=== PATIENT | male | born 1970 | race African-American/Black ===

== ENCOUNTER 2020-01-27 15:16 | Inpatient (IN) | payer OTHER ==
[2020-01-27 17:50] VITALS: BMI 28.7
--- NOTE | 2020-01-27 18:06 | HP ---
CIWA Score Nausea/Vomitin-No Nausea/No Vomiting Muscle Tremors: None Anxiety: 4-Mod. Anxious/Guarded Agitation: 4-Moderately Restless Paroxysmal Sweats: 4-Forehead w/Sweat Beads Orientation: 0-Oriented Tacttile Disturbances: 0-None Auditory Disturbances: 0-None Visual Disturbances: 0-None Headache: 2-Mild CIWA-Ar Total Score: 14 - Admission Criteria OASAS Guidelines: Admission for Medically Managed Detox: Requires at least one of the followin. CIWA greater than 12 2. Seizures within the past 24 hours 3. Delirium tremens within the past 24 hours 4. Hallucinations within the past 24 hours 5. Acute intervention needed for co occurring medical disorder 6. Acute intervention needed for co occurring psychiatric disorder 7. Severe withdrawal that cannot be handled at a lower level of care (continued vomiting, continued diarrhea, abnormal vital signs) requiring intravenous medication and/or fluids 8. Patient presents the following: CIWA greater than 12 Admission Criteria Met: Admission criteria met Admission ROS [facility] Chief Complaint: C/O WORSENING WITHDRAWAL SX'S Allergies/Adverse Reactions: Allergies Allergy/AdvReac Type Severity Reaction Status Date / Time No Known Allergies Allergy Verified 01/27/20 18:00 History of Present Illness: HERE FOR ALCOHOL DETOX. TIS IS HIS FIRST ADMISSION. SELF REFERRED. PRESENTS W/ CO/ OF WITHDRAWAL SX'S. DRINKS ALCOHOL DAILY. LAST DRINK A FEW HOURS AGO. HE ALSO REPORTS COCA AND CANNABIS ABUSE. DENIES IVDU, BLACKOUTS, SEIZURE DO, EYE ACADEMY DIRECTOR. + VISUAL HALLUCINATIONS WITH INTOXICATION. PRESENTLY DENIES. DENIES ANY SIGNIFICANT PERIOD OF CLEAN TIME IN THE PAST 12 MONTHS. HE IS HOMELESS, UNEMPL OYED, DENIES LEGALS Exam Limitations: No Limitations - Ebola screening Have you traveled outside of the country in the last 21 days: No Have you had contact with anyone from an Ebola affected area: No Have you been sick,other than usual withdrawal symptoms: No Do you have a fever: No - Review of Systems Constitutional: Night Sweats, Changes in sleep EENT: reports: Dental Problems (MISSING TEETH) Respiratory: reports: No Symptoms reported Cardiac: reports: No Symptoms Reported GI: reports: No Symptoms Reported : reports: No Symptoms Reported Musculoskeletal: reports: Back Pain (CHRONIC), Neck Pain (CHRONIC) Integumentary: reports: Dryness Neuro: reports: Headache Endocrine: reports: No Symptoms Reported Hematology: reports: No Symptoms Reported Psychiatric: reports: Orientated x3, Anxious, Depressed (DENIES SI/HI) Other Systems: Reviewed and Negative Patient History - Patient Medical History Hx Anemia: No Hx Asthma: No Hx Chronic Obstructive Pulmonary Disease (COPD): No Hx Cancer: No Hx Cardiac Disorders: No Hx Congestive Heart Failure: No Hx Hypertension: No Hx Hypercholesterolemia: No Hx Pacemaker: No HX Cerebrovascular Accident: No Hx Seizures: No Hx Dementia: No Hx Diabetes: No Hx Gastrointestinal Disorders: No Hx Liver Disease: No Hx Genitourinary Disorders: No Hx Sexually Transmitted Disorders: No Hx Renal Disease (ESRD): No Hx Thyroid Disease: No Hx Human Immunodeficiency Virus (HIV): No Hx Hepatitis C: No Hx Depression: No Hx Suicide Attempt: No Hx Bipolar Disorder: No Hx Schizophrenia: No Other Medical History: DENIES - Patient Surgical History Past Surgical History: No - PPD History Previous Implant?: Yes Documented Results: Negative w/o proof Implanted On Prior [facility] Admission?: No PPD to be Administered?: Yes - Smoking Cessation Smoking history: Current every day smoker Have you smoked in the past 12 months: Yes Aproximately how many cigarettes per day: 20 Hx Chewing Tobacco Use: No Initiated information on smoking cessation: Yes 'Breaking Loose' booklet given: 01/27/20 - Substance & Tx. History Hx Alcohol Use: Yes Substance Use Type: None, Alcohol, Cocaine, Marijuana Hx Substance Use Treatment: No - Substances abused Cocaine Other (specify): crack Substance route: Smoking Frequency: Daily Amount used: 200 dollars Age of first use: 42 Date of last use: 01/27/20 Marijuana/Hashish Substance route: Smoking Frequency: 3-6 times per week Amount used: 20 dollars Age of first use: 14 Date of last use: 01/27/20 Alcohol Substance route: Oral Frequency: Daily Amount used: 1 liter henessy/ 2 of 40 oounces. Age of first use: 16 Date of last use: 01/27/20 Admission Physical Exam BHS - Vital Signs Vital Signs: Vital Signs - 24 hr 01/27/20 17:41 Temperature 97.8 F Pulse Rate 84 Respiratory 18 Rate Blood Pressure 127/74 - Physical General Appearance: Yes: Disheveled (UNKEPT, MALODUROUS), Mild Distress, Tremo rashard (FELT), Anxious HEENTM: Yes: EOMI, Normocephalic, Normal Voice, EAN, Pharynx Normal, Other (MISSING TEETH) Respiratory: Yes: Chest Non-Tender, Lungs Clear, Normal Breath Sounds, No Respiratory Distress, No Accessory Muscle Use Neck: Yes: No masses,lesions,Nodules, Supple, Trachea in good position Breast: Yes: Breasts Symetrical Cardiology: Yes: Regular Rhythm, Regular Rate, S1, S2 Abdominal: Yes: Normal Bowel Sounds, Non Tender, Soft Genitourinary: Yes: Within Normal Limits Back: Yes: Normal Inspection Musculoskeletal: Yes: full range of Motion, Gait Steady Extremities: Yes: Normal Capillary Refill, Normal Range of Motion, Non-Tender, Tremors Neurological: Yes: Fully Oriented, Alert, Motor Strength 5/5, Depressed Affect Integumentary: Yes: Dry (FLAKY SKIN COOL SKIN. PILORECTION NOTED), Rash (RASH NOTED TO RIGHT COLLAR BONE AND LEFT GROIN AREA, PRUTITIC WITH ERYTHEMATOUS BASE), Other (SKIN TAG TO LEFT FLANK AREA) Lymphatic: Yes: Within Normal Limits - Diagnostic (1) Alcohol dependence with withdrawal, uncomplicated Current Visit: Yes Status: Acute (2) Cocaine dependence, uncomplicated Current Visit: Yes Status: Acute (3) Nicotine dependence Current Visit: Yes Status: Chronic Qualifiers: Nicotine product type: cigarettes Substance use status: uncomplicated Qualified Code(s): F17.210 - Nicotine dependence, cigarettes, uncomplicated (4) Depressed affect Current Visit: Yes Status: Acute (5) Substance induced mood disorder Current Visit: Yes Status: Acute (6) Homeless Current Visit: Yes Status: Acute (7) At risk for dehydration due to poor fluid intake Current Visit: Yes Status: Acute (8) Skin turgor poor Current Visit: Yes Status: Acute (9) Tinea corporis Current Visit: Yes Status: Acute (10) Skin tag Current Visit: Yes Status: Chronic Cleared for Admission S - Detox or Rehab S Level of Care: Medically Managed Detox Regimen/Protocol: Librium Claeared for Rehab Admission: No Breathalyzer - Breathalyzer Breathalyzer: 0 Urine Drug Screen - Test Device Lot number: [id number] Expiration date: 10/23/21 - Control Is test valid?: Yes - Results Drug screen NEGATIVE: No Urine drug screen results: THC-Marijuana, MK-Cocaine Inpatient Rehab Admission - Rehab Decision to Admit Inpatient rehab admission?: No
[2020-01-27] MEDS ORDERED: NICOTINE POLACRILEX 2 MG GUM BUC PRN (18:11)
[2020-01-27] MEDS ORDERED: DICYCLOMINE HCL 10 MG CAPSULE PO PRN (18:11)
[2020-01-27] MEDS ORDERED: MAG HYDROX/AL HYDROX/SIMETH 30 ML UNIT-DOSE CUP PO PRN (18:11)
[2020-01-27] MEDS ORDERED: MAGNESIUM HYDROX 2400MG/30ML ORAL SUSPENSION 30 ML CUP PO PRN (18:11)
[2020-01-27] MEDS ORDERED: MENTHOL/PHENOL 1 EACH UD MM PRN (18:11)
[2020-01-27] MEDS ORDERED: IBUPROFEN 400 MG TABLET (FP) PO PRN (18:11)
[2020-01-27] MEDS ORDERED: BISMUTH SUBSALICYLATE 524 MG/30 ML UD PO PRN (18:11)
[2020-01-27] MEDS ORDERED: chlordiazePOXIDE HCL 25 MG CAPSULE PO PRN (18:11)
[2020-01-27] MEDS ORDERED: MAGNESIUM CITRATE 300 ML BOTTLE PO PRN (18:11)
[2020-01-27] MEDS ORDERED: P-EPHED 60MG/TRIPROLIDI 2.5MG TABLET PO PRN (18:11)
[2020-01-27] MEDS ORDERED: guaiFENesin 200 MG/10 ML 10 ML UNIT-DOSE CUPS PO PRN (18:11)
[2020-01-27] MEDS ORDERED: METHOCARBAMOL 500 MG TABLET PO PRN (18:11)
[2020-01-27] MEDS ORDERED: ACETAMINOPHEN 325 MG TABLET (FP) PO PRN ×2 (18:11)
[2020-01-27] MEDS ORDERED: MELATONIN 5 MG TABLETS PO PRN (18:50)
[2020-01-27] MEDS ORDERED: ONDANSETRON *ODT* 4 MG TABLET SL ONE (19:00)
[2020-01-27] MEDS ORDERED: MELATONIN 5 MG TABLETS PO SCH (22:00)
[2020-01-27] MEDS: THIAMINE HCL 100 MG TABLET (FP) PO SCH (22:43)
[2020-01-27] MEDS: chlordiazePOXIDE HCL 25 MG CAPSULE PO SCH (22:43)
[2020-01-27] MEDS: NYSTATIN 100,000 UNIT/GM TOPICAL CREAM 15 GM TUBE TP SCH (22:44)
[2020-01-28] MEDS: chlordiazePOXIDE HCL 25 MG CAPSULE PO SCH ×4 (06:00→22:47)
[2020-01-28] MEDS: PRENATAL VITAMINS W/ FOLIC ACID TABLET (FP) PO SCH (10:23)
[2020-01-28] MEDS: NICOTINE 14 MG/24 HOURS TOPICAL PATCH TD SCH (10:23)
[2020-01-28] MEDS: NYSTATIN 100,000 UNIT/GM TOPICAL CREAM 15 GM TUBE TP SCH ×2 (10:23→22:46)
[2020-01-28 10:34] LABS: HEMATOCRIT 38.1 % (35.4-49); HEMOGLOBIN 12.8 GM/dL (11.7-16.9); MCH 31.4 pg (25.7-33.7); MCHC 33.6 g/dl (32.0-35.9); MEAN CELL VOLUME 93.4 fl (80-96); MEAN PLT VOLUME 9.1 fl (7.5-11.1); PLATELET COUNT 210 K/MM3 (134-434); RBC 4.08 M/mm3 (4.00-5.60); RDW 15.8 % (11.9-15.9); WHITE BLOOD COUNT 5.2 K/mm3 (4.0-10.0)
[2020-01-28 10:50] LABS: ALBUMIN 3.1 g/dl (3.4-5.0); BILIRUBIN,TOTAL 0.2 mg/dL (0.2-1); CALCIUM 8.6 mg/dL (8.5-10.1); CREATININE 1.1 mg/dL (0.55-1.3); POTASSIUM 3.9 mmol/L (3.5-5.1); TOT PROT 5.9 g/dl (6.4-8.2)
--- NOTE | 2020-01-28 10:57 | EKG ---
Test Reason : Blood Pressure : / mmHG Vent. Rate : 078 BPM Atrial Rate : 078 BPM P-R Int : 158 ms QRS Dur : 094 ms QT Int : 358 ms P-R-T Axes : 053 061 031 degrees QTc Int : 408 ms NORMAL SINUS RHYTHM MINIMAL VOLTAGE CRITERIA FOR LVH, MAY BE NORMAL VARIANT NO PREVIOUS ECGS AVAILABLE Confirmed by VIVIEN DEMPSEY MD ([id number]) on 01/28/2020 10:57:09 AM Referred By: GREGORY Confirmed By:VIVIEN DEMPSEY MD
--- NOTE | 2020-01-28 12:06 | CONSULT ---
[facility] Psychiatric Consult - Data Date of interview: 01/28/20 Admission source: [facility] Identifying data: Revisit to [facility] and first admission to [address] [place] [address] for this 49 y/o AA male self-referred for detoxification treatment. RACHEL issues : alcohol, crack/cocaine, cannabis, nicotine. Patient is single, a father of four, now homeless, unemployed and deprived of any source of income. Substance Abuse History: Discussed with the patient. RACHEL profile as follows : Smoking history: Current every day smoker. Have you smoked in the past 12 months: Yes. Aproximately how many cigarettes per day: 20. Hx Chewing Tobacco Use: No. Initiated information on smoking cessation: Yes. 'Breaking Loose' booklet given: 01/27/20. - Substance & Tx. History. Hx Alcohol Use: Yes. Substance Use Type: None, Alcohol, Cocaine, Marijuana. Hx Substance Use Treatment: No. - Substances abused. Cocaine. Other (specify): crack. Substance route: Smoking. Frequency: Daily. Amount used: 200 dollars. Age of first use: 42. Date of last use: 01/27/20. Marijuana/Hashish. Substance route: Smoking. Frequency: 3-6 times per week. Amount used: 20 dollars. Age of first use: 14. Date of last use: 01/27/20. Alcohol. Substance route: Oral. Frequency: Daily. Amount used: 1 liter henessy/ 2 of 40 oounces. Age of first use: 16. Date of last use: 01/27/20 Medical History: Patient endorses good general health. Noted report of tinea corporis (H+P on this admission). Psychiatric History: Patient denies history of psychiatric hospitalizations (only extended observation stays with release next day at [facility], [facility] and [facility]). " I don't have a mental illness. Using drugs and drinking alcohol are my only problems." Denies having ever received a formal psychiatric diagnosis other than a RACHEL-related syndrome. Mr Maldonado denies history of suicide attempts. Physical/Sexual Abuse/Trauma History: Stressors : homelessness, unemployment, lack of vocational skills, conflictual rapport with biological mother, discord with common-law spouse and addictions. Additional Comment: Urine drug screen results: THC-Marijuana, MK-Cocaine. Noted. Mental Status Exam - Mental Status Exam Alert and Oriented to: Time, Place, Person Cognitive Function: Good Patient Appearance: Unkempt, Disheveled Mood: Nervous Affect: Inappropriate, Labile Patient Behavior: Talkative, Cooperative (overfriendly) Speech Pattern: Inappropriate (frequent use of expletives, profanities), Excessive Voice Loudness: Normal Thought Process: Circumstantial (at times), Goal Oriented Thought Disorder: Bizarre (appears to be religiously preoccupied) Hallucinations: Denies Suicidal Ideation: Denies Homicidal Ideation: Denies Insight/Judgement: Poor Sleep: Well Appetite: Good Gait/Station: Normal Psychiatric Findings - Problem List ([place] 1, 2,3) (1) Alcohol dependence with withdrawal, uncomplicated Current Visit: Yes Status: Acute (2) Cocaine dependence, uncomplicated Current Visit: Yes Status: Chronic (3) Cannabis dependence Current Visit: Yes Status: Chronic (4) Nicotine dependence Current Visit: Yes Status: Chronic Qualifiers: Nicotine product type: cigarettes Substance use status: uncomplicated Qualified Code(s): F17.210 - Nicotine dependence, cigarettes, uncomplicated (5) Substance induced mood disorder Current Visit: Yes Status: Chronic - Initial Treatment Plan Initial Treatment Plan: Psychoeducation. Sleep hygiene. Detoxification in progress. Support. AA meetings. Groups. Observation.
--- NOTE | 2020-01-28 14:39 | PN ---
S CIWA - CIWA Score Nausea/Vomitin-Mild Nausea/No Vomiting Muscle Tremors: 1-None Visible, but [place] Anxiety: 2 Agitation: 2 Paroxysmal Sweats: 1-Minimal Palms Moist Orientation: 0-Oriented Tacttile Disturbances: 1-Very Mild Itch/Numbness Auditory Disturbances: 0-None Visual Disturbances: 0-None Headache: 1-Very Mild CIWA-Ar Total Score: 9 BHS Progress Note (SOAP) Subjective: alert,irritable,anxious,interrupted sleep,tremor Objective: 01/28/20 14:38 Vital Signs Temperature 97.7 F 01/28/20 09:01 Pulse Rate 77 01/28/20 09:01 Respiratory Rate 16 01/28/20 09:01 Blood Pressure 107/66 01/28/20 09:01 O2 Sat by Pulse Oximetry (%) Laboratory Last Values WBC 5.2 K/mm3 (4.0-10.0) 01/28/20 07:45 RBC 4.08 M/mm3 (4.00-5.60) 01/28/20 07:45 Hgb 12.8 GM/dL (11.7-16.9) 01/28/20 07:45 Hct 38.1 % (35.4-49) 01/28/20 07:45 MCV 93.4 fl (80-96) 01/28/20 07:45 MCH 31.4 pg (25.7-33.7) 01/28/20 07:45 MCHC 33.6 g/dl (32.0-35.9) 01/28/20 07:45 RDW 15.8 % (11.9-15.9) 01/28/20 07:45 Plt Count 210 K/MM3 (134-434) 01/28/20 07:45 MPV 9.1 fl (7.5-11.1) 01/28/20 07:45 Sodium 142 mmol/L (136-145) 01/28/20 07:45 Potassium 3.9 mmol/L (3.5-5.1) 01/28/20 07:45 Chloride 108 mmol/L (98-107) H 01/28/20 07:45 Carbon Dioxide 30 mmol/L (21-32) 01/28/20 07:45 Anion Gap 3 MMOL/L (8-16) L 01/28/20 07:45 BUN 14.0 mg/dL (7-18) 01/28/20 07:45 Creatinine 1.1 mg/dL (0.55-1.3) 01/28/20 07:45 Est GFR (CKD-EPI)AfAm 91.52 01/28/20 07:45 Est GFR (CKD-EPI)NonAf 78.96 01/28/20 07:45 Random Glucose 89 mg/dL (74-106) 01/28/20 07:45 Calcium 8.6 mg/dL (8.5-10.1) 01/28/20 07:45 Total Bilirubin 0.2 mg/dL (0.2-1) 01/28/20 07:45 AST 7 U/L (15-37) L 01/28/20 07:45 ALT 15 U/L (13-61) 01/28/20 07:45 Alkaline Phosphatase 63 U/L (45-117) 01/28/20 07:45 Total Protein 5.9 g/dl (6.4-8.2) L 01/28/20 07:45 Albumin 3.1 g/dl (3.4-5.0) L 01/28/20 07:45 RPR Titer Nonreactive (NONREACTIVE) 01/28/20 07:45 Assessment: 01/28/20 14:39 withdrawal symptom Plan: continue detox librium regimen
[2020-01-28] MEDS: THIAMINE HCL 100 MG TABLET (FP) PO SCH (22:46)
[2020-01-29] MEDS: chlordiazePOXIDE HCL 25 MG CAPSULE PO SCH ×4 (07:49→22:25)
[2020-01-29] MEDS: NICOTINE 14 MG/24 HOURS TOPICAL PATCH TD SCH (10:37)
[2020-01-29] MEDS: PRENATAL VITAMINS W/ FOLIC ACID TABLET (FP) PO SCH (10:38)
[2020-01-29] MEDS: NYSTATIN 100,000 UNIT/GM TOPICAL CREAM 15 GM TUBE TP SCH ×2 (10:38→22:26)
--- NOTE | 2020-01-29 13:20 | PN ---
S CIWA - CIWA Score Nausea/Vomitin-No Nausea/No Vomiting Muscle Tremors: None Anxiety: 3 Agitation: 0-Normal Activity Paroxysmal Sweats: 3 Orientation: 0-Oriented Tacttile Disturbances: 0-None Auditory Disturbances: 0-None Visual Disturbances: 0-None Headache: 2-Mild CIWA-Ar Total Score: 8 BHS Progress Note (SOAP) Subjective: c/o anxiety, headache, and sweats. Objective: 01/29/20 13:20 Vital Signs 01/29/20 01/29/20 01/29/20 06:39 08:50 12:40 Temperature 97.1 F L 96.4 F L 99.2 F Pulse Rate 89 92 H 97 H Respiratory 18 20 20 Rate Blood Pressure 107/60 115/75 117/73 Laboratory Last Values WBC 5.2 K/mm3 (4.0-10.0) 01/28/20 07:45 RBC 4.08 M/mm3 (4.00-5.60) 01/28/20 07:45 Hgb 12.8 GM/dL (11.7-16.9) 01/28/20 07:45 Hct 38.1 % (35.4-49) 01/28/20 07:45 MCV 93.4 fl (80-96) 01/28/20 07:45 MCH 31.4 pg (25.7-33.7) 01/28/20 07:45 MCHC 33.6 g/dl (32.0-35.9) 01/28/20 07:45 RDW 15.8 % (11.9-15.9) 01/28/20 07:45 Plt Count 210 K/MM3 (134-434) 01/28/20 07:45 MPV 9.1 fl (7.5-11.1) 01/28/20 07:45 Sodium 142 mmol/L (136-145) 01/28/20 07:45 Potassium 3.9 mmol/L (3.5-5.1) 01/28/20 07:45 Chloride 108 mmol/L (98-107) H 01/28/20 07:45 Carbon Dioxide 30 mmol/L (21-32) 01/28/20 07:45 Anion Gap 3 MMOL/L (8-16) L 01/28/20 07:45 BUN 14.0 mg/dL (7-18) 01/28/20 07:45 Creatinine 1.1 mg/dL (0.55-1.3) 01/28/20 07:45 Est GFR (CKD-EPI)AfAm 91.52 01/28/20 07:45 Est GFR (CKD-EPI)NonAf 78.96 01/28/20 07:45 Random Glucose 89 mg/dL (74-106) 01/28/20 07:45 Calcium 8.6 mg/dL (8.5-10.1) 01/28/20 07:45 Total Bilirubin 0.2 mg/dL (0.2-1) 01/28/20 07:45 AST 7 U/L (15-37) L 01/28/20 07:45 ALT 15 U/L (13-61) 01/28/20 07:45 Alkaline Phosphatase 63 U/L (45-117) 01/28/20 07:45 Total Protein 5.9 g/dl (6.4-8.2) L 01/28/20 07:45 Albumin 3.1 g/dl (3.4-5.0) L 01/28/20 07:45 RPR Titer Nonreactive (NONREACTIVE) 01/28/20 07:45 Labs noted. Assessment: 01/29/20 13:21 AOX3, in no acute respiratory distress. Full ROM, ambulating in the unit. Withdrawal symptoms. Plan: continue detox.
[2020-01-29] MEDS: THIAMINE HCL 100 MG TABLET (FP) PO SCH (22:25)
[2020-01-30] MEDS ORDERED: chlordiazePOXIDE HCL 10 MG CAPSULE PO PRN
[2020-01-30] MEDS: chlordiazePOXIDE HCL 10 MG CAPSULE PO SCH ×4 (06:58→22:51)
[2020-01-30] MEDS: PRENATAL VITAMINS W/ FOLIC ACID TABLET (FP) PO SCH (10:51)
[2020-01-30] MEDS: NICOTINE 14 MG/24 HOURS TOPICAL PATCH TD SCH (10:51)
[2020-01-30] MEDS: NYSTATIN 100,000 UNIT/GM TOPICAL CREAM 15 GM TUBE TP SCH ×2 (10:52→22:52)
--- NOTE | 2020-01-30 13:33 | PN ---
S CIWA - CIWA Score Nausea/Vomitin-No Nausea/No Vomiting Muscle Tremors: 1-None Visible, but [place] Anxiety: 3 Agitation: 0-Normal Activity Paroxysmal Sweats: 1-Minimal Palms Moist Orientation: 0-Oriented Tacttile Disturbances: 0-None Auditory Disturbances: 0-None Visual Disturbances: 1-Very Mild Sensitivity Headache: 0-None Present CIWA-Ar Total Score: 6 BHS Progress Note (SOAP) Subjective: 49 years old male admitted on 01/27/20 for alcohol withdrawal sx management treating with librium detox regiment feeling better today ate breakfast in day room social with peers discuss aftercare with staff prefers [facility] participating in behavior and psychosocial therapies groups and meetings Objective: 01/30/20 13:35 Vital Signs Temperature 98.1 F 01/30/20 08:56 Pulse Rate 87 01/30/20 08:56 Respiratory Rate 18 01/30/20 08:56 Blood Pressure 125/77 01/30/20 08:56 O2 Sat by Pulse Oximetry (%) Laboratory Last Values WBC 5.2 K/mm3 (4.0-10.0) 01/28/20 07:45 RBC 4.08 M/mm3 (4.00-5.60) 01/28/20 07:45 Hgb 12.8 GM/dL (11.7-16.9) 01/28/20 07:45 Hct 38.1 % (35.4-49) 01/28/20 07:45 MCV 93.4 fl (80-96) 01/28/20 07:45 MCH 31.4 pg (25.7-33.7) 01/28/20 07:45 MCHC 33.6 g/dl (32.0-35.9) 01/28/20 07:45 RDW 15.8 % (11.9-15.9) 01/28/20 07:45 Plt Count 210 K/MM3 (134-434) 01/28/20 07:45 MPV 9.1 fl (7.5-11.1) 01/28/20 07:45 Sodium 142 mmol/L (136-145) 01/28/20 07:45 Potassium 3.9 mmol/L (3.5-5.1) 01/28/20 07:45 Chloride 108 mmol/L (98-107) H 01/28/20 07:45 Carbon Dioxide 30 mmol/L (21-32) 01/28/20 07:45 Anion Gap 3 MMOL/L (8-16) L 01/28/20 07:45 BUN 14.0 mg/dL (7-18) 01/28/20 07:45 Creatinine 1.1 mg/dL (0.55-1.3) 01/28/20 07:45 Est GFR (CKD-EPI)AfAm 91.52 01/28/20 07:45 Est GFR (CKD-EPI)NonAf 78.96 01/28/20 07:45 Random Glucose 89 mg/dL (74-106) 01/28/20 07:45 Calcium 8.6 mg/dL (8.5-10.1) 01/28/20 07:45 Total Bilirubin 0.2 mg/dL (0.2-1) 01/28/20 07:45 AST 7 U/L (15-37) L 01/28/20 07:45 ALT 15 U/L (13-61) 01/28/20 07:45 Alkaline Phosphatase 63 U/L (45-117) 01/28/20 07:45 Total Protein 5.9 g/dl (6.4-8.2) L 01/28/20 07:45 Albumin 3.1 g/dl (3.4-5.0) L 01/28/20 07:45 RPR Titer Nonreactive (NONREACTIVE) 01/28/20 07:45 lab noted Assessment: 01/30/20 13:35 alcohol withdrawal Plan: librium regiment
[2020-01-30] MEDS: THIAMINE HCL 100 MG TABLET (FP) PO SCH (22:51)
[2020-01-31] MEDS: chlordiazePOXIDE HCL 10 MG CAPSULE PO SCH ×2 (07:08→17:55)
[2020-01-31] MEDS: NYSTATIN 100,000 UNIT/GM TOPICAL CREAM 15 GM TUBE TP SCH ×2 (10:17→22:16)
[2020-01-31] MEDS: NICOTINE 14 MG/24 HOURS TOPICAL PATCH TD SCH (10:17)
[2020-01-31] MEDS: PRENATAL VITAMINS W/ FOLIC ACID TABLET (FP) PO SCH (10:17)
--- NOTE | 2020-01-31 13:25 | PN ---
[facility] CIWA - CIWA Score Nausea/Vomitin-No Nausea/No Vomiting Muscle Tremors: 1-None Visible, but [place] Anxiety: 1-Mildly Anxious Agitation: 0-Normal Activity Paroxysmal Sweats: 1-Minimal Palms Moist Orientation: 0-Oriented Tacttile Disturbances: 0-None Auditory Disturbances: 0-None Visual Disturbances: 0-None Headache: 0-None Present CIWA-Ar Total Score: 3 BHS Progress Note (SOAP) Subjective: 49 years old male admitted on 01/27/20 for alcohol withdrawal sx management treating with librium detox regiment feeling better today ate breakfast and lunch in day room social with peers patient is angry that not able to make a phone call due to the phone is out of function patient will not take the answer verbally abusive to staff patient is able to calm and regain self control not able to accept further conversation at this time Objective: 01/31/20 13:28 Vital Signs Temperature 97.5 F L 01/31/20 08:34 Pulse Rate 89 01/31/20 08:34 Respiratory Rate 18 01/31/20 08:34 Blood Pressure 119/75 01/31/20 08:34 O2 Sat by Pulse Oximetry (%) Laboratory Last Values WBC 5.2 K/mm3 (4.0-10.0) 01/28/20 07:45 RBC 4.08 M/mm3 (4.00-5.60) 01/28/20 07:45 Hgb 12.8 GM/dL (11.7-16.9) 01/28/20 07:45 Hct 38.1 % (35.4-49) 01/28/20 07:45 MCV 93.4 fl (80-96) 01/28/20 07:45 MCH 31.4 pg (25.7-33.7) 01/28/20 07:45 MCHC 33.6 g/dl (32.0-35.9) 01/28/20 07:45 RDW 15.8 % (11.9-15.9) 01/28/20 07:45 Plt Count 210 K/MM3 (134-434) 01/28/20 07:45 MPV 9.1 fl (7.5-11.1) 01/28/20 07:45 Sodium 142 mmol/L (136-145) 01/28/20 07:45 Potassium 3.9 mmol/L (3.5-5.1) 01/28/20 07:45 Chloride 108 mmol/L (98-107) H 01/28/20 07:45 Carbon Dioxide 30 mmol/L (21-32) 01/28/20 07:45 Anion Gap 3 MMOL/L (8-16) L 01/28/20 07:45 BUN 14.0 mg/dL (7-18) 01/28/20 07:45 Creatinine 1.1 mg/dL (0.55-1.3) 01/28/20 07:45 Est GFR (CKD-EPI)AfAm 91.52 01/28/20 07:45 Est GFR (CKD-EPI)NonAf 78.96 01/28/20 07:45 Random Glucose 89 mg/dL (74-106) 01/28/20 07:45 Calcium 8.6 mg/dL (8.5-10.1) 01/28/20 07:45 Total Bilirubin 0.2 mg/dL (0.2-1) 01/28/20 07:45 AST 7 U/L (15-37) L 01/28/20 07:45 ALT 15 U/L (13-61) 01/28/20 07:45 Alkaline Phosphatase 63 U/L (45-117) 01/28/20 07:45 Total Protein 5.9 g/dl (6.4-8.2) L 01/28/20 07:45 Albumin 3.1 g/dl (3.4-5.0) L 01/28/20 07:45 RPR Titer Nonreactive (NONREACTIVE) 01/28/20 07:45 lab noted Assessment: 01/31/20 13:29 alcohol withdrawal Plan: librium regiment
[2020-01-31 15:08] LABS: URINE APPEARANCE CLEAR; URINE BILIRUBIN NEGATIVE (NEGATIVE); URINE COLOR YELLOW; URINE GLUCOSE (UA) NEGATIVE (NEGATIVE); URINE KETONE NEGATIVE (NEGATIVE); URINE LEUK ESTERASE NEGATIVE (NEGATIVE); URINE NITRITE NEGATIVE (NEGATIVE); URINE PROTEIN NEGATIVE (NEGATIVE); URINE UROBILINOGEN 0.2 mg/dL (0.2-1.0)
[2020-01-31] MEDS: THIAMINE HCL 100 MG TABLET (FP) PO SCH (22:16)
[2020-02-01] MEDS ORDERED: chlordiazePOXIDE HCL 10 MG CAPSULE PO ONE (05:00)
[2020-02-01 09:20] VITALS: BP 126/77; PULSE 64; TEMP 98.3
[2020-02-01] MEDS: NYSTATIN 100,000 UNIT/GM TOPICAL CREAM 15 GM TUBE TP SCH (10:19)
[2020-02-01] MEDS: PRENATAL VITAMINS W/ FOLIC ACID TABLET (FP) PO SCH (10:19)
[2020-02-01] MEDS: NICOTINE 14 MG/24 HOURS TOPICAL PATCH TD SCH (10:19)
--- NOTE | 2020-02-01 16:25 | DS ---
[facility] Detox Discharge Summary Admission Date: 01/27/20 Discharge Date: 02/01/20 - History Present History: Alcohol Dependence Additional Comments: 49 years old male admitted on 01/27/20 for alcohol withdrawal sx management treated with librium detox regiment Mr Johns has completed librium regiment and is tolerated well alert oriented x 3 cardiac s1s2 regular rate rhyth respiratory clear lungs bilaterally on auscultation extremities full range of motion Pertinent Past History: time for discharge 29 minutes - Physical Exam Results Vital Signs: Vital Signs Temperature 98.3 F 02/01/20 08:42 Pulse Rate 64 02/01/20 08:42 Respiratory Rate 18 02/01/20 08:42 Blood Pressure 126/77 02/01/20 08:42 O2 Sat by Pulse Oximetry (%) Pertinent Admission Physical Exam Findings: alcohol withdrawal Vital Signs Temperature 98.3 F 02/01/20 08:42 Pulse Rate 64 02/01/20 08:42 Respiratory Rate 18 02/01/20 08:42 Blood Pressure 126/77 02/01/20 08:42 O2 Sat by Pulse Oximetry (%) Laboratory Last Values WBC 5.2 K/mm3 (4.0-10.0) 01/28/20 07:45 RBC 4.08 M/mm3 (4.00-5.60) 01/28/20 07:45 Hgb 12.8 GM/dL (11.7-16.9) 01/28/20 07:45 Hct 38.1 % (35.4-49) 01/28/20 07:45 MCV 93.4 fl (80-96) 01/28/20 07:45 MCH 31.4 pg (25.7-33.7) 01/28/20 07:45 MCHC 33.6 g/dl (32.0-35.9) 01/28/20 07:45 RDW 15.8 % (11.9-15.9) 01/28/20 07:45 Plt Count 210 K/MM3 (134-434) 01/28/20 07:45 MPV 9.1 fl (7.5-11.1) 01/28/20 07:45 Sodium 142 mmol/L (136-145) 01/28/20 07:45 Potassium 3.9 mmol/L (3.5-5.1) 01/28/20 07:45 Chloride 108 mmol/L (98-107) H 01/28/20 07:45 Carbon Dioxide 30 mmol/L (21-32) 01/28/20 07:45 Anion Gap 3 MMOL/L (8-16) L 01/28/20 07:45 BUN 14.0 mg/dL (7-18) 01/28/20 07:45 Creatinine 1.1 mg/dL (0.55-1.3) 01/28/20 07:45 Est GFR (CKD-EPI)AfAm 91.52 01/28/20 07:45 Est GFR (CKD-EPI)NonAf 78.96 01/28/20 07:45 Random Glucose 89 mg/dL (74-106) 01/28/20 07:45 Calcium 8.6 mg/dL (8.5-10.1) 01/28/20 07:45 Total Bilirubin 0.2 mg/dL (0.2-1) 01/28/20 07:45 AST 7 U/L (15-37) L 01/28/20 07:45 ALT 15 U/L (13-61) 01/28/20 07:45 Alkaline Phosphatase 63 U/L (45-117) 01/28/20 07:45 Total Protein 5.9 g/dl (6.4-8.2) L 01/28/20 07:45 Albumin 3.1 g/dl (3.4-5.0) L 01/28/20 07:45 Urine Color Yellow 01/30/20 10:30 Urine Appearance Clear 01/30/20 10:30 Urine pH 7.0 (5.0-8.0) 01/30/20 10:30 Ur Specific [place] 1.005 (1.010-1.035) L 01/30/20 10:30 Urine Protein Negative (NEGATIVE) 01/30/20 10:30 Urine Glucose (UA) Negative (NEGATIVE) 01/30/20 10:30 Urine Ketones Negative (NEGATIVE) 01/30/20 10:30 Urine Blood Negative (NEGATIVE) 01/30/20 10:30 Urine Nitrite Negative (NEGATIVE) 01/30/20 10:30 Urine Bilirubin Negative (NEGATIVE) 01/30/20 10:30 Urine Urobilinogen 0.2 mg/dL (0.2-1.0) 01/30/20 10:30 Ur Leukocyte Esterase Negative (NEGATIVE) 01/30/20 10:30 RPR Titer Nonreactive (NONREACTIVE) 01/28/20 07:45 T.pallidum Ab Interpret Cancelled 01/28/20 07:45 lab noted - Treatment Hospital Course: Detox Protocol Followed, Detoxed Safely, Responded well, Discharged Condition Good, Rehab Referral Accepted Patient has Accepted a Rehab Referral to: [facility] - Medication Discharge Medications: Ambulatory Orders NK [No Known Home Medication] 01/27/20 - Diagnosis (1) Alcohol dependence with withdrawal, uncomplicated Status: Acute (2) Nicotine dependence Status: Acute Qualifiers: Nicotine product type: cigarettes Substance use status: in withdrawal Qualified Code(s): F17.213 - Nicotine dependence, cigarettes, with withdrawal (3) Substance induced mood disorder Status: Suspected - AMA Did Patient Leave Against Medical Advice: No CIWA Score - CIWA Score Nausea/Vomitin-No Nausea/No Vomiting Muscle Tremors: 1-None Visible, but [place] Anxiety: 0-No Anxiety, at Ease Agitation: 0-Normal Activity Paroxysmal Sweats: No Perspiration Orientation: 0-Oriented Tacttile Disturbances: 0-None Auditory Disturbances: 0-None Visual Disturbances: 0-None Headache: 0-None Present CIWA-Ar Total Score: 1
== END 2020-02-01 11:51 | disposition other institution (70) | DRG 774 ==
LOC: YASAS 15:16 → Y3N 18:13
PROVIDERS: ADMIT Allergy & Immunology; ATTEND Allergy & Immunology
PROC: HZ2ZZZZ Detoxification Services for Substance Abuse Treatment (ICD-10-PCS; principal; 2020-01-27)
DX: F10.230 Alcohol dependence with withdrawal, uncomplicated (principal); F14.20 Cocaine dependence, uncomplicated; F12.20 Cannabis dependence, uncomplicated; F17.213 Nicotine dependence, cigarettes, with withdrawal; F19.24 Other psychoactive substance dependence with psychoactive substance-induced mood disorder; L91.8 Other hypertrophic disorders of the skin; B35.4 Tinea corporis; R63.8 Other symptoms and signs concerning food and fluid intake; R23.8 Other skin changes; Z56.0 Unemployment, unspecified; Z59.0 Homelessness
CPT/HCPCS: 36415; 80053; 81003; 85027; 86593; 93005; 93010; Q0162

== ENCOUNTER 2021-01-10 18:32 | Emergency (ER) | payer OTHER ==
[2021-01-10 18:38] VITALS: BMI 30.7
[2021-01-10 20:05] VITALS: BP 112/75; PULSE 76; TEMP 98.5
== END 2021-01-10 20:55 | disposition home or self-care (01) ==
LOC: JER 18:32
DX: T40.2X1A Poisoning by other opioids, accidental (unintentional), initial encounter (principal); F14.90 Cocaine use, unspecified, uncomplicated
CPT/HCPCS: 82962; 99283-25

== ENCOUNTER 2021-03-28 14:20 | Inpatient (IN) | payer OTHER ==
[2021-03-28 15:42] VITALS: BMI 27.6
[2021-03-28] MEDS ORDERED: MAGNESIUM HYDROX 2400MG/30ML ORAL SUSPENSION 30 ML CUP PO PRN (21:03)
[2021-03-28] MEDS ORDERED: BISMUTH SUBSALICYLATE 524 MG/30 ML UD PO PRN (21:03)
[2021-03-28] MEDS ORDERED: ONDANSETRON *ODT* 4 MG TABLET SL PRN (21:03)
[2021-03-28] MEDS ORDERED: MAGNESIUM CITRATE 300 ML BOTTLE PO PRN (21:03)
[2021-03-28] MEDS ORDERED: hydrOXYzine PAMOATE 25 MG CAPSULE (FP) PO PRN (21:03)
[2021-03-28] MEDS ORDERED: ACETAMINOPHEN 325 MG TABLET (FP) PO PRN ×2 (21:03)
[2021-03-28] MEDS ORDERED: chlordiazePOXIDE HCL 25 MG CAPSULE PO PRN (21:03)
[2021-03-28] MEDS ORDERED: MAG HYDROX/AL HYDROX/SIMETH 30 ML UNIT-DOSE CUP PO PRN (21:03)
[2021-03-28] MEDS ORDERED: METHOCARBAMOL 500 MG TABLET PO PRN (21:03)
[2021-03-28] MEDS ORDERED: IBUPROFEN 400 MG TABLET (FP) PO PRN (21:03)
[2021-03-28] MEDS ORDERED: MENTHOL/PHENOL 1 EACH UD MM PRN (21:03)
[2021-03-28] MEDS: chlordiazePOXIDE HCL 25 MG CAPSULE PO SCH (22:25)
[2021-03-28] MEDS: THIAMINE HCL 100 MG TABLET (FP) PO SCH (22:25)
[2021-03-28] MEDS: MELATONIN 5 MG TABLETS PO SCH (22:28)
[2021-03-29] MEDS: chlordiazePOXIDE HCL 25 MG CAPSULE PO SCH ×4 (05:44→22:56)
[2021-03-29] MEDS: PRENATAL VITAMINS W/ FOLIC ACID TABLET (FP) PO SCH (10:58)
[2021-03-29 11:42] LABS: HEMATOCRIT 37.5 % (35.4-49); HEMOGLOBIN 12.7 GM/dL (11.7-16.9); MCHC 33.9 g/dl (32.0-35.9); MEAN CELL VOLUME 94.3 fl (80-96); MEAN PLT VOLUME 9.2 fl (7.5-11.1); PLATELET COUNT 204 K/MM3 (134-434); RBC 3.98 M/mm3 (4.00-5.60); WHITE BLOOD COUNT 4.5 K/mm3 (4.0-10.0)
[2021-03-29 11:46] LABS: CALCIUM 8.6 mg/dL (8.5-10.1)
[2021-03-29 11:47] LABS: ALBUMIN 3.4 g/dl (3.4-5.0); BLOOD UREA NITROGEN 13.3 mg/dL (7-18)
[2021-03-29 11:50] LABS: CREATININE 1.2 mg/dL (0.55-1.3)
[2021-03-29 11:51] LABS: BILIRUBIN,TOTAL 0.2 mg/dL (0.2-1)
[2021-03-29 11:52] LABS: TOT PROT 6.2 g/dl (6.4-8.2)
[2021-03-29] MEDS: THIAMINE HCL 100 MG TABLET (FP) PO SCH (22:56)
[2021-03-29] MEDS: MELATONIN 5 MG TABLETS PO SCH (23:26)
[2021-03-30] MEDS: chlordiazePOXIDE HCL 25 MG CAPSULE PO SCH ×4 (06:21→22:37)
[2021-03-30] MEDS: PRENATAL VITAMINS W/ FOLIC ACID TABLET (FP) PO SCH (11:11)
[2021-03-30] MEDS: MELATONIN 5 MG TABLETS PO SCH (22:37)
[2021-03-30] MEDS: THIAMINE HCL 100 MG TABLET (FP) PO SCH (22:37)
[2021-03-31] MEDS ORDERED: chlordiazePOXIDE HCL 10 MG CAPSULE PO PRN
[2021-03-31] MEDS: chlordiazePOXIDE HCL 10 MG CAPSULE PO SCH ×4 (06:29→22:13)
[2021-03-31] MEDS: PRENATAL VITAMINS W/ FOLIC ACID TABLET (FP) PO SCH (10:53)
[2021-03-31] MEDS ORDERED: AMMONIUM LACTATE 12% LOTION 225 GM BOTTLE TP PRN (11:07)
[2021-03-31] MEDS: THIAMINE HCL 100 MG TABLET (FP) PO SCH (22:12)
[2021-03-31] MEDS: HYDROCORTISONE 0.5% TOPICAL CREAM 30 GM TUBE TP PRN (22:13)
[2021-03-31] MEDS: MELATONIN 5 MG TABLETS PO SCH (22:16)
[2021-04-01] MEDS: chlordiazePOXIDE HCL 10 MG CAPSULE PO SCH ×2 (06:09→17:46)
[2021-04-01] MEDS: PRENATAL VITAMINS W/ FOLIC ACID TABLET (FP) PO SCH (10:26)
[2021-04-01] MEDS: MELATONIN 5 MG TABLETS PO SCH (22:04)
[2021-04-01] MEDS: THIAMINE HCL 100 MG TABLET (FP) PO SCH (22:04)
[2021-04-02] MEDS ORDERED: chlordiazePOXIDE HCL 10 MG CAPSULE PO ONE (05:00)
[2021-04-02] MEDS: HYDROCORTISONE 0.5% TOPICAL CREAM 30 GM TUBE TP PRN (07:00)
[2021-04-02 07:27] VITALS: PULSE 80; TEMP 97.5
[2021-04-02 10:03] VITALS: BP 127/75
[2021-04-02] MEDS: PRENATAL VITAMINS W/ FOLIC ACID TABLET (FP) PO SCH (10:16)
== END 2021-04-02 13:14 | disposition home or self-care (01) | DRG 774 ==
LOC: YASAS 14:20 → Y6N 19:26
PROVIDERS: ADMIT Allergy & Immunology; ATTEND Allergy & Immunology
PROC: HZ2ZZZZ Detoxification Services for Substance Abuse Treatment (ICD-10-PCS; principal; 2021-03-28)
DX: F10.230 Alcohol dependence with withdrawal, uncomplicated (principal); F14.20 Cocaine dependence, uncomplicated; F12.20 Cannabis dependence, uncomplicated; F17.210 Nicotine dependence, cigarettes, uncomplicated; F19.24 Other psychoactive substance dependence with psychoactive substance-induced mood disorder
CPT/HCPCS: 36415; 80053; 84132; 85027; 86780; C9803; U0003; U0005

== ENCOUNTER 2022-01-20 03:01 | Emergency (ER) | payer OTHER ==
[2022-01-20] MEDS ORDERED: morphine SULFATE 4 MG/ML VIAL ONE ×3 (03:05→04:29)
[2022-01-20] MEDS ORDERED: morphine CARPU-JECT 4 MG/1 ML DISP.SYRIN IVPUSH ONE ×3 (03:06→05:34)
[2022-01-20] MEDS ORDERED: LIDOCAINE HCL 2% (20ML MULTI-DOSE VIAL) ONE ×3 (03:09→04:32)
[2022-01-20] MEDS ORDERED: PHENYLEPHRINE HCL 10 MG/1 ML SINGLE DOSE VIAL IVPB ONE ×2 (03:37→03:39)
[2022-01-20] MEDS ORDERED: PHENYLEPHRINE HCL 10 MG/1 ML SINGLE DOSE VIAL ONE (03:43)
[2022-01-20 04:01] VITALS: TEMP 98.8; BMI 30.2
[2022-01-20 04:21] LABS: HEMOGLOBIN 13.4 GM/dL (11.7-16.9); RBC 4.25 M/mm3 (4.00-5.60); WHITE BLOOD COUNT 7.5 K/mm3 (4.0-10.0)
[2022-01-20 04:22] LABS: BASO % 0.4 % (0-2.0); EOS % 1.1 % (0-4.5); LYMPH % 21.3 % (8-40); MCH 31.5 pg (25.7-33.7); MCHC 34.3 g/dl (32.0-35.9); MEAN CELL VOLUME 91.8 fl (80-96); MEAN PLT VOLUME 9.1 fl (7.5-11.1); MONO % 8.3 % (3.8-10.2); NEUT % 68.9 % (42.8-82.8); PLATELET COUNT 220 10^3/uL (134-434); RDW 14.6 % (11.9-15.9)
[2022-01-20 04:29] LABS: INR 1.21 (0.83-1.09); PROTHROMBIN TIME (PATIENT) 13.9 SEC (9.7-13.0)
[2022-01-20 04:32] LABS: ACTIVATED PTT 34.1 SECONDS (25.2-36.5)
[2022-01-20 04:44] LABS: CALCIUM 8.8 mg/dL (8.5-10.1)
[2022-01-20 04:45] LABS: BLOOD UREA NITROGEN 11.7 mg/dL (7-18)
[2022-01-20 04:49] LABS: TOT PROT 7.6 g/dl (6.4-8.2)
[2022-01-20 04:50] LABS: BILIRUBIN,TOTAL 0.5 mg/dL (0.2-1)
[2022-01-20 04:57] LABS: VENOUS BASE EXCESS -5.4 mmol/L (-2-2); VENOUS O2 SATURATION 39.2 % (70-80); VENOUS PCO2 52.2 mmHg (38-52); VENOUS PH 7.25 (7.310-7.410)
[2022-01-20] MEDS ORDERED: ceFAZolin 2 GRAM PREMIX BAG IVPB ONE (05:08)
[2022-01-20] MEDS ORDERED: LIDOCAINE HCL 2% (50ML VIAL) SQ ONE ×2 (05:19→05:20)
[2022-01-20] MEDS ORDERED: SODIUM CHLORIDE 0.9% 500 ML INFUS.BAG IV ONE (05:21)
[2022-01-20] MEDS ORDERED: CEFAZOLIN 2 GM in SODIUM CHLORIDE 100 ML IVPB ONE (05:45)
[2022-01-20 11:17] LABS: EPI CELLS 4 /uL (0-25.1); HYALINE CASTS 2 /uL (0-3.1); URINE APPEARANCE CLEAR; URINE BACTERIA 16 /uL (0-1359); URINE BILIRUBIN NEGATIVE (NEGATIVE); URINE COLOR YELLOW; URINE GLUCOSE (UA) NEGATIVE (NEGATIVE); URINE KETONE TRACE (NEGATIVE); URINE LEUK ESTERASE NEGATIVE (NEGATIVE); URINE NITRITE NEGATIVE (NEGATIVE); URINE PROTEIN TRACE (NEGATIVE); URINE RBC 7 /uL (0-23.9); URINE WBC 8 /uL (0-25.8)
[2022-01-20 11:25] VITALS: BP 100/58; PULSE 79
[2022-01-20] MEDS ORDERED: CEPHALEXIN MONOHYDRATE 500 MG CAPSULE (UD) PO ONE (12:40)
[2022-01-20] MEDS ORDERED: CEPHALEXIN MONOHYDRATE 500 MG CAPSULE (UD) ONE (12:40)
== END 2022-01-20 13:25 | disposition home or self-care (01) ==
LOC: JER 03:01
PROC: 3E03329 Introduction of Other Anti-infective into Peripheral Vein, Percutaneous Approach (ICD-10-PCS; principal; 2022-01-20)
PROC: 3E033NZ Introduction of Analgesics, Hypnotics, Sedatives into Peripheral Vein, Percutaneous Approach (ICD-10-PCS; 2022-01-20)
PROC: 3E033NZ Introduction of Analgesics, Hypnotics, Sedatives into Peripheral Vein, Percutaneous Approach (ICD-10-PCS; 2022-01-20)
PROC: 3E033HZ Introduction of Radioactive Substance into Peripheral Vein, Percutaneous Approach (ICD-10-PCS; 2022-01-20)
PROC: 3E033GC Introduction of Other Therapeutic Substance into Peripheral Vein, Percutaneous Approach (ICD-10-PCS; 2022-01-20)
DX: N48.29 Other inflammatory disorders of penis (principal); S30.842A External constriction of penis, initial encounter; W49.09XA Other specified item causing external constriction, initial encounter
CPT/HCPCS: 36415; 80053; 81003; 82803; 85025; 85610; 85730; 86850; 86900; 86901; 87086; 96374; 96375; 96376; 99284-25

== ENCOUNTER 2023-08-05 13:51 | Inpatient (IN) | payer OTHER ==
[2023-08-05 14:39] VITALS: BMI 22.5
[2023-08-05] MEDS ORDERED: P-EPHED 60MG/TRIPROLIDI 2.5MG TABLET PO PRN (17:54)
[2023-08-05] MEDS ORDERED: MAGNESIUM HYDROX 2400MG/30ML ORAL SUSPENSION 30 ML CUP PO PRN (17:54)
[2023-08-05] MEDS ORDERED: POLYETHYLENE GLYCOL (HEALTHYLAX) 3350 17 GM PACKET PO PRN (17:54)
[2023-08-05] MEDS ORDERED: guaiFENesin 600 MG TABLET.ER (FP) PO PRN (17:54)
[2023-08-05] MEDS ORDERED: MAG HYDROX/AL HYDROX/SIMETH 30 ML UNIT-DOSE CUP PO PRN (17:54)
[2023-08-05] MEDS ORDERED: BENZONATATE 200 MG CAPSULE PO PRN (17:54)
[2023-08-05] MEDS ORDERED: BENZOCAINE/MENTHOL (CHLORASEPTIC ) LOZENGE MM PRN (17:54)
[2023-08-05] MEDS ORDERED: IBUPROFEN 600 MG TABLET (FP) PO PRN (17:54)
[2023-08-05] MEDS ORDERED: AMMONIUM LACTATE 12% LOTION 225 GM BOTTLE TP PRN (17:54)
[2023-08-05] MEDS ORDERED: ACETAMINOPHEN 325 MG TABLET (FP) PO PRN (17:54)
[2023-08-05] MEDS ORDERED: LOPERAMIDE HCL 2 MG CAPSULE PO PRN (17:54)
[2023-08-05] MEDS ORDERED: IBUPROFEN 400 MG TABLET (FP) PO PRN (17:54)
[2023-08-05] MEDS ORDERED: hydrOXYzine PAMOATE 25 MG CAPSULE (FP) PO PRN (17:54)
[2023-08-05] MEDS: MELATONIN 5 MG TABLETS PO SCH (23:45)
[2023-08-05] MEDS: THIAMINE HCL 100 MG TABLET (FP) PO SCH (23:45)
[2023-08-06] MEDS ORDERED: TUBERCULIN PPD 5 TU/0.1ML SYRINGE (IN PATIENT USE ONLY) ID ONE (10:00)
[2023-08-06 10:38] LABS: HEMOGLOBIN 13.1 GM/dL (11.7-16.9); MCHC 33.7 g/dl (32.0-35.9); MEAN CELL VOLUME 92.1 fl (80-96); MEAN PLT VOLUME 8.9 fl (7.5-11.1); PLATELET COUNT 247 10^3/uL (134-434); RBC 4.23 M/mm3 (4.00-5.60); RDW 14.4 % (11.9-15.9); WHITE BLOOD COUNT 5.6 K/mm3 (4.0-10.0)
[2023-08-06 10:40] LABS: EPI CELLS 10 /uL (0-25.1); HYALINE CASTS 1 /uL (0-3.1); URINE APPEARANCE CLEAR; URINE BACTERIA 7 /uL (0-1359); URINE BILIRUBIN NEGATIVE (NEGATIVE); URINE COLOR YELLOW; URINE GLUCOSE (UA) NEGATIVE (NEGATIVE); URINE KETONE TRACE (NEGATIVE); URINE LEUK ESTERASE TRACE (NEGATIVE); URINE NITRITE NEGATIVE (NEGATIVE); URINE PROTEIN NEGATIVE (NEGATIVE); URINE RBC 6 /uL (0-23.9); URINE WBC 10 /uL (0-25.8)
[2023-08-06 10:51] LABS: POTASSIUM 4.2 mmol/L (3.5-5.1)
[2023-08-06 10:55] LABS: CALCIUM 8.4 mg/dL (8.5-10.1)
[2023-08-06 10:58] LABS: CREATININE 0.9 mg/dL (0.55-1.3)
[2023-08-06 10:59] LABS: ALBUMIN 3.2 g/dl (3.4-5.0)
[2023-08-06 11:00] LABS: BILIRUBIN,TOTAL 0.2 mg/dL (0.2-1); TOT PROT 6.2 g/dl (6.4-8.2)
[2023-08-06] MEDS: PRENATAL VITAMINS W/ FOLIC ACID TABLET (FP) PO SCH (11:14)
[2023-08-06] MEDS: MELATONIN 5 MG TABLETS PO SCH (21:03)
[2023-08-06] MEDS: THIAMINE HCL 100 MG TABLET (FP) PO SCH (21:03)
[2023-08-07] MEDS: PRENATAL VITAMINS W/ FOLIC ACID TABLET (FP) PO SCH (10:09)
[2023-08-07] MEDS: THIAMINE HCL 100 MG TABLET (FP) PO SCH (21:16)
[2023-08-07] MEDS: MELATONIN 5 MG TABLETS PO SCH (21:16)
[2023-08-08] MEDS: PRENATAL VITAMINS W/ FOLIC ACID TABLET (FP) PO SCH (09:02)
[2023-08-08] MEDS: MELATONIN 5 MG TABLETS PO SCH (21:06)
[2023-08-08] MEDS: THIAMINE HCL 100 MG TABLET (FP) PO SCH (21:06)
[2023-08-09] MEDS: PRENATAL VITAMINS W/ FOLIC ACID TABLET (FP) PO SCH (10:01)
[2023-08-09] MEDS: THIAMINE HCL 100 MG TABLET (FP) PO SCH (22:08)
[2023-08-09] MEDS: MELATONIN 5 MG TABLETS PO SCH (22:08)
[2023-08-10] MEDS: PRENATAL VITAMINS W/ FOLIC ACID TABLET (FP) PO SCH (09:33)
[2023-08-10] MEDS: THIAMINE HCL 100 MG TABLET (FP) PO SCH (21:30)
[2023-08-10] MEDS: MELATONIN 5 MG TABLETS PO SCH (21:30)
[2023-08-11] MEDS: PRENATAL VITAMINS W/ FOLIC ACID TABLET (FP) PO SCH (09:44)
[2023-08-11] MEDS: THIAMINE HCL 100 MG TABLET (FP) PO SCH (21:34)
[2023-08-11] MEDS: MELATONIN 5 MG TABLETS PO SCH (21:35)
[2023-08-12] MEDS: PRENATAL VITAMINS W/ FOLIC ACID TABLET (FP) PO SCH (10:10)
[2023-08-12] MEDS: MELATONIN 5 MG TABLETS PO SCH (21:14)
[2023-08-12] MEDS: THIAMINE HCL 100 MG TABLET (FP) PO SCH (21:14)
[2023-08-13] MEDS: PRENATAL VITAMINS W/ FOLIC ACID TABLET (FP) PO SCH (09:25)
[2023-08-13] MEDS: THIAMINE HCL 100 MG TABLET (FP) PO SCH (21:18)
[2023-08-13] MEDS: MELATONIN 5 MG TABLETS PO SCH (21:18)
[2023-08-14] MEDS: PRENATAL VITAMINS W/ FOLIC ACID TABLET (FP) PO SCH (10:26)
[2023-08-14] MEDS: THIAMINE HCL 100 MG TABLET (FP) PO SCH (21:07)
[2023-08-14] MEDS: MELATONIN 5 MG TABLETS PO SCH (21:07)
[2023-08-15] MEDS: PRENATAL VITAMINS W/ FOLIC ACID TABLET (FP) PO SCH (10:08)
[2023-08-15] MEDS: THIAMINE HCL 100 MG TABLET (FP) PO SCH (21:06)
[2023-08-15] MEDS: MELATONIN 5 MG TABLETS PO SCH (21:06)
[2023-08-16] MEDS: PRENATAL VITAMINS W/ FOLIC ACID TABLET (FP) PO SCH (09:34)
[2023-08-16] MEDS: COLLOIDAL OATMEAL 1 BAR EACH TP PRN (20:56)
[2023-08-16] MEDS: THIAMINE HCL 100 MG TABLET (FP) PO SCH (21:39)
[2023-08-16] MEDS: MELATONIN 5 MG TABLETS PO SCH (21:39)
[2023-08-17] MEDS: PRENATAL VITAMINS W/ FOLIC ACID TABLET (FP) PO SCH (09:31)
[2023-08-17] MEDS: THIAMINE HCL 100 MG TABLET (FP) PO SCH (21:31)
[2023-08-17] MEDS: MELATONIN 5 MG TABLETS PO SCH (21:31)
[2023-08-18] MEDS: PRENATAL VITAMINS W/ FOLIC ACID TABLET (FP) PO SCH (09:47)
[2023-08-18] MEDS: MELATONIN 5 MG TABLETS PO SCH (21:28)
[2023-08-18] MEDS: THIAMINE HCL 100 MG TABLET (FP) PO SCH (21:28)
[2023-08-19] MEDS: PRENATAL VITAMINS W/ FOLIC ACID TABLET (FP) PO SCH (09:57)
[2023-08-19] MEDS: THIAMINE HCL 100 MG TABLET (FP) PO SCH (21:04)
[2023-08-19] MEDS: SUVOREXANT 10 MG TABLET PO PRN (21:05)
[2023-08-20] MEDS: PRENATAL VITAMINS W/ FOLIC ACID TABLET (FP) PO SCH (09:39)
[2023-08-20] MEDS: THIAMINE HCL 100 MG TABLET (FP) PO SCH (21:02)
[2023-08-20] MEDS: SUVOREXANT 10 MG TABLET PO PRN (21:03)
[2023-08-21] MEDS: PRENATAL VITAMINS W/ FOLIC ACID TABLET (FP) PO SCH (10:05)
[2023-08-21] MEDS: SUVOREXANT 10 MG TABLET PO PRN (21:23)
[2023-08-21] MEDS: THIAMINE HCL 100 MG TABLET (FP) PO SCH (21:23)
[2023-08-22] MEDS: PRENATAL VITAMINS W/ FOLIC ACID TABLET (FP) PO SCH (09:34)
[2023-08-22] MEDS: THIAMINE HCL 100 MG TABLET (FP) PO SCH (21:07)
[2023-08-22] MEDS: SUVOREXANT 10 MG TABLET PO PRN (21:09)
[2023-08-23] MEDS: PRENATAL VITAMINS W/ FOLIC ACID TABLET (FP) PO SCH (09:14)
[2023-08-23] MEDS: THIAMINE HCL 100 MG TABLET (FP) PO SCH (21:29)
[2023-08-24] MEDS: PRENATAL VITAMINS W/ FOLIC ACID TABLET (FP) PO SCH (09:28)
[2023-08-24] MEDS: SUVOREXANT 10 MG TABLET PO PRN (21:03)
[2023-08-24] MEDS: THIAMINE HCL 100 MG TABLET (FP) PO SCH (21:03)
[2023-08-25] MEDS: PRENATAL VITAMINS W/ FOLIC ACID TABLET (FP) PO SCH (09:17)
[2023-08-25] MEDS: SUVOREXANT 10 MG TABLET PO PRN (21:08)
[2023-08-25] MEDS: THIAMINE HCL 100 MG TABLET (FP) PO SCH (21:08)
[2023-08-26] MEDS: PRENATAL VITAMINS W/ FOLIC ACID TABLET (FP) PO SCH (09:01)
[2023-08-26] MEDS: THIAMINE HCL 100 MG TABLET (FP) PO SCH (21:04)
[2023-08-26] MEDS: SUVOREXANT 10 MG TABLET PO PRN (21:04)
[2023-08-27] MEDS: PRENATAL VITAMINS W/ FOLIC ACID TABLET (FP) PO SCH (09:09)
[2023-08-27] MEDS: COLLOIDAL OATMEAL 1 BAR EACH TP PRN (11:37)
[2023-08-27] MEDS: THIAMINE HCL 100 MG TABLET (FP) PO SCH (21:21)
[2023-08-27] MEDS: SUVOREXANT 10 MG TABLET PO PRN (21:21)
[2023-08-28] MEDS: PRENATAL VITAMINS W/ FOLIC ACID TABLET (FP) PO SCH (10:38)
[2023-08-28] MEDS: THIAMINE HCL 100 MG TABLET (FP) PO SCH (21:19)
[2023-08-28] MEDS: SUVOREXANT 10 MG TABLET PO PRN (21:20)
[2023-08-29] MEDS: PRENATAL VITAMINS W/ FOLIC ACID TABLET (FP) PO SCH (09:49)
[2023-08-29] MEDS: THIAMINE HCL 100 MG TABLET (FP) PO SCH (21:30)
[2023-08-29] MEDS: SUVOREXANT 10 MG TABLET PO PRN (21:31)
[2023-08-30] MEDS: PRENATAL VITAMINS W/ FOLIC ACID TABLET (FP) PO SCH (10:09)
[2023-08-30] MEDS: THIAMINE HCL 100 MG TABLET (FP) PO SCH (21:11)
[2023-08-31] MEDS: PRENATAL VITAMINS W/ FOLIC ACID TABLET (FP) PO SCH (09:47)
[2023-08-31] MEDS: THIAMINE HCL 100 MG TABLET (FP) PO SCH (21:18)
[2023-09-01 07:23] VITALS: BP 118/64; PULSE 86; RESP 17; TEMP 97.3
[2023-09-01] MEDS: COLLOIDAL OATMEAL 1 BAR EACH TP PRN (08:47)
== END 2023-09-01 09:42 | disposition home or self-care (01) | DRG 772 ==
LOC: YASAS 13:51 → Y3W 22:55
PROVIDERS: ADMIT Allergy & Immunology; ATTEND Psychiatry & Neurology Pain Medicine
PROC: HZ42ZZZ Group Counseling for Substance Abuse Treatment, Cognitive-Behavioral (ICD-10-PCS; principal; 2023-08-05)
DX: F14.20 Cocaine dependence, uncomplicated (principal); F10.20 Alcohol dependence, uncomplicated; F12.20 Cannabis dependence, uncomplicated; F17.210 Nicotine dependence, cigarettes, uncomplicated; F19.280 Other psychoactive substance dependence with psychoactive substance-induced anxiety disorder; F19.282 Other psychoactive substance dependence with psychoactive substance-induced sleep disorder; G47.00 Insomnia, unspecified; Z56.0 Unemployment, unspecified; Z59.02 Unsheltered homelessness
CPT/HCPCS: 36415; 80053; 81003; 85027; 86780; 87635